=== PATIENT | male | born 1950 | race Caucasian/White ===

== ENCOUNTER 2021-03-20 14:10 | Emergency (ER) | payer MEDICARE ==
[~2021-03-20] VITALS: Ht 165.1 cm; Wt 70.0 kg
[~2021-03-20 14:10] MED LIST: AMLO5TAB16 PO; ASPI-612 PO; DIVA-74 PO; MECL-226 PO; MEMA10TA PO; PARO20TA6 PO; RANI150C4 PO; TAMS0.4C32 PO; TRAZ-251 PO
[2021-03-20 14:54] VITALS: BP 146/69
== END 2021-03-20 17:04 | disposition home or self-care (01) ==
LOC: ER 14:14
DX: K40.90 Unilateral inguinal hernia, without obstruction or gangrene, not specified as recurrent (principal); K59.00 Constipation, unspecified; N50.819 Testicular pain, unspecified; F31.9 Bipolar disorder, unspecified; Z86.73 Personal history of transient ischemic attack (TIA), and cerebral infarction without residual deficits; Z98.890 Other specified postprocedural states; Z72.89 Other problems related to lifestyle; Z79.899 Other long term (current) drug therapy
CPT/HCPCS: 99281

== ENCOUNTER 2021-04-22 10:50 | Day surgery (SDC) | payer MEDICARE ==
[2021-04-20 15:16] LABS: BASOPHILS # (AUTO) 0.1 X10'3 (0-0.2); BASOPHILS % (AUTO) 1.8 % (0-1); EOSINOPHILS # (AUTO) 0.3 X10'3 (0-0.9); LYMPHOCYTES # (AUTO) 2.5 X10'3 (1.1-4.8); LYMPHOCYTES % (AUTO) 39.1 % (21-51); MEAN CORPUSCULAR HEMOGLOBIN 31.2 PG (27.0-31.0); MEAN CORPUSCULAR HGB CONC 32.8 g/dL (33.0-36.5); MEAN CORPUSCULAR VOLUME 95.1 FL (78-98); MEAN PLATELET VOLUME 9.5 FL (7.4-10.4); MONOCYTES # (AUTO) 0.8 X10'3 (0-0.9); MONOCYTES % (AUTO) 12.2 % (2-12); NEUTROPHILS # (AUTO) 2.7 X10'3 (1.8-7.7); NEUTROPHILS % (AUTO) 41.9 % (42-75); PRE OP HEMATOCRIT 43.5 % (42.0-52.0); PRE OP HEMOGLOBIN 14.3 g/dL (14.0-17.9); PRE OP PLATELET COUNT 176 X10'3 (140-440); RED BLOOD COUNT 4.57 X10'6 (4.70-6.10); RED CELL DISTRIBUTION WIDTH 15.5 % (11.5-14.5)
[2021-04-20 15:19] LABS: CLARITY,URINE CLEAR (Clear); COLOR,URINE YELLOW (Yellow); GLUCOSE, URINE NEGATIVE (Neg); KETONES,URINE NEGATIVE (Neg); LEUKOCYTE ESTERASE ,URINE NEGATIVE (Neg); NITRITES, URINE NEGATIVE (Neg); OCCULT BLOOD,URINE SMALL (Neg); PH,URINE 5.5 (4.8-8.0); PROTEIN,URINE NEGATIVE (Neg)
[2021-04-20 15:21] LABS: UA COLLECTION TYPE NON-SPECIFIED
[2021-04-20 15:26] LABS: PRE OP PROTIME 10.5 SECONDS (9.0-12.0)
[2021-04-20 15:28] LABS: SQUAMOUS EPITHELIAL CELL,UR FEW /LPF (FEW)
[2021-04-20 15:29] LABS: BACTERIA,URINE FEW /HPF (Neg); RBC,URINE 0-2 /HPF (0-2); WBC,URINE 0-4 /HPF (0-4)
[2021-04-20 15:29] LABS: ALBUMIN 3.4 G/DL (3.4-5.0); ALBUMIN/GLOBULIN RATIO 0.8 (1.1-1.5); ALKALINE PHOSPHATASE 88 IU/L (46-116); BLOOD UREA NITROGEN 19 MG/DL (7-18); BUN/CREATININE RATIO 17.8 (5.4-32.0); CHLORIDE 105 MMOL/L (99-107); CREATININE 1.07 MG/DL (0.60-1.10); PRE OP ALT 8 U/L (30-65); PRE OP ANION GAP 10 (8-16); PRE OP AST 17 U/L (10-37); PRE OP BILIRUB, TOTAL 0.2 MG/DL (0.0-1.0); PRE OP GLUCOSE 80 MG/DL (70-104); PRE OP POTASSIUM 4.1 MMOL/L (3.4-5.1); PRE OP SODIUM 143 MMOL/L (135-145); TOTAL CARBON DIOXIDE 28.1 MMOL/L (24-32); TOTAL PROTEIN 7.8 G/DL (6.4-8.2); eGFR 68 ML/MIN
[2021-04-22] VITALS (15 sets, daily range): BP systolic 138–171; BP diastolic 65–111
[~2021-04-22] VITALS: Ht 165.1 cm; Wt 71.7 kg
[~2021-04-22 10:50] MED LIST changes: +ATOR20TA66 PO; +BUSP7.5T5 PO; +DOCU-148 PO; +DONE-46 PO; +HYDR-3964 PO; -MECL-226 PO; -MEMA10TA PO; +MEMA10TA56 PO; +MIRT-88 PO; +PANT40TA54 PO; -RANI150C4 PO; +SENN-263 PO; -TRAZ-251 PO; +TRAZ-256 PO; +VITAMIN D3 PO; +[UNRECOGNIZED DRUG - OTHER] PO; +cefazolin/dext.iso 2gm/100ml IV ONE; +famotidine 20mg tablet PO ONE; +ringers solution, lacted 1,000 ML IV SCH
[2021-04-22] MEDS ORDERED: BUPIVAcaine/PF 2.5 mg/ml (0.25%) 30ml vial ONE (11:58)
[2021-04-22] MEDS ORDERED: fentaNYL/PF 50MCG/1 ML 2ML syringe ONE ×2 (12:35→13:12)
[2021-04-22] MEDS ORDERED: propofol 10mg/ml 20ml vial IV ONE (12:37)
[2021-04-22] MEDS ORDERED: glycopyrrolate 0.2mg/ml inj ONE (12:37)
[2021-04-22] MEDS ORDERED: neostigmine methylsulfate 1 MG/ML 10ml vial ONE (12:37)
[2021-04-22] MEDS ORDERED: LIDOcaine 1%/PF 5ML 10 MG/ML VIAL ONE (12:37)
[2021-04-22] MEDS ORDERED: rocuronium 10mg/ml inj IV ONE (12:37)
[2021-04-22] MEDS ORDERED: acetaminophen 1000 MG/100ml vial IV ONE (12:37)
[2021-04-22] MEDS ORDERED: sevoflurane 250ml liquid IH ONE (12:37)
[2021-04-22] MEDS ORDERED: labetalol 20mg/4ml (5mg/ml) syringe IV ONE (12:37)
[2021-04-22] MEDS ORDERED: ondansetron/PF 4mg/2ml inj ONE (12:37)
[2021-04-22] MEDS ORDERED: hydrALAZINE 20mg/ml inj. IV ONE (12:37)
[2021-04-22] MEDS ORDERED: HYDROmorphone/PF 0.2 MG/ML SYRINGE IV PRN ×2 (13:30)
[2021-04-22] MEDS ORDERED: ringers solution, lacted 1,000 ML IV SCH (13:30)
[2021-04-22] MEDS ORDERED: ondansetron/PF 4mg/2ml inj IV PRN (13:30)
[2021-04-22] MEDS ORDERED: BUPIVAcaine/PF 2.5 mg/ml (0.25%) 30ml vial IJ ONE (13:31)
--- NOTE | 2021-04-22 14:29 | NUR ---
Received from OR via [facility], accompanied by Anesthesiologist DR SUAZO and report given by Anesthesiologist. PT CONFUSED AND COMBATIVE FOR SHORT TIME THEN BECAME ORIENTED. ABDOMEN W/3 LAP SITES W/DERMABOND CDI. Addendum: 04/22/21 at 1539 by Kelli Crow RN Amended: Links added.
[2021-04-22] MEDS ORDERED: meperidine/PF 25mg/ml syringe ONE (14:36)
[2021-04-22] MEDS: morphine 2 MG/ML inj. syringe IV PRN ×2 (15:10→16:42)
[2021-04-22] MEDS ORDERED: LIDOcaine 2% 10ml TOPICAL JELLY (Urojet) MM ONE (16:55)
[2021-04-22] MEDS ORDERED: HYDROcodone/acetaminophen 10/325mg tab PO ONE (17:20)
--- NOTE | 2021-04-22 17:49 | NUR ---
PT ONLY ABLE TO VOID SCANT AMT OF PINK URINE, SCANNED BLADDER FOR 149 ML, CALLED DR DICKSON AND UPDATED, ORDERS RECEIVED. PT WANTED TO WAIT AND ATTEMPT TO VOID, AFTER 45 MINUTES, PT UNABLE TO VOID, 16 SLOVENIAN KATHLEEN CATHETER PLACED W/STERILE TECHNIQUE W/480 ML RETURN LIGHT PINK/;YELLOW URINE. D/C INSTRUCTIONS GIVEN AND GONE OVER W/PT AND PTS SON WHO VERBALIZED UNDERSTANDING. PT D/CD TO HOME VIA W/C TO PRIVATE VEHICLE W/O INCIDENT. Addendum: 04/22/21 at 1835 by Kelli Crow RN Amended: Links added.
== END 2021-04-22 17:49 | disposition home or self-care (01) ==
LOC: PAS 10:50
PROVIDERS: ATTEND Surgery
DX: K40.90 Unilateral inguinal hernia, without obstruction or gangrene, not specified as recurrent (principal); R10.32 Left lower quadrant pain; F41.8 Other specified anxiety disorders; E11.9 Type 2 diabetes mellitus without complications; F41.9 Anxiety disorder, unspecified; F32.9 Major depressive disorder, single episode, unspecified; Z86.73 Personal history of transient ischemic attack (TIA), and cerebral infarction without residual deficits; Z91.81 History of falling; J44.9 Chronic obstructive pulmonary disease, unspecified; Z72.0 Tobacco use; Z87.442 Personal history of urinary calculi; Z98.890 Other specified postprocedural states; G89.29 Other chronic pain; Z79.899 Other long term (current) drug therapy
CPT/HCPCS: 36415; 49650; 71046; 80053; 81001; 85025; 85610; 85730; 93005; C1758; C1781; J0131; J0360; J2175; J2270; J2405; J2704; J2710; J3010; J3490; J7120; S2900; A4215; A4618

== ENCOUNTER 2024-02-13 20:13 | Emergency (ER) | payer MEDICARE ==
[~2024-02-13] VITALS: Ht 165.1 cm; Wt 72.3 kg
[~2024-02-13 20:13] MED LIST changes: -cefazolin/dext.iso 2gm/100ml IV ONE; -famotidine 20mg tablet PO ONE; -ringers solution, lacted 1,000 ML IV SCH
[2024-02-13 20:19] VITALS: TEMP 97.9
[2024-02-13] MEDS: glucagon, human recombinant 1mg kit IV ONE (21:28)
[2024-02-13 22:20] VITALS: BP 157/78; PULSE 60; RESP 15
[2024-02-13] MEDS ORDERED: fentaNYL/PF 50MCG/1 ML 2ML syringe ONE (22:21)
[2024-02-13] MEDS ORDERED: MIDAZolam 1 MG/ML 5ML VIAL ONE (22:21)
[2024-02-13] MEDS ORDERED: LIDOcaine 2% Viscous 15ml cup ONE (22:22)
[2024-02-13 22:38] VITALS: BP 144/73; PULSE 60; RESP 13; O2SAT 99
[2024-02-13 22:44] VITALS: BP 137/68; PULSE 60; RESP 12; O2SAT 97
[2024-02-13 22:54] VITALS: BP 150/74; PULSE 60; RESP 12; O2SAT 98
[2024-02-13 23:04] VITALS: BP 149/75; PULSE 60; RESP 11; O2SAT 97
[2024-02-14 00:39] VITALS: BP 138/79; PULSE 60; RESP 12; O2SAT 96
== END 2024-02-14 00:41 | disposition home or self-care (01) ==
LOC: ER 20:14
DX: T18.128A Food in esophagus causing other injury, initial encounter (principal); E10.9 Type 1 diabetes mellitus without complications; Z79.899 Other long term (current) drug therapy; Z79.1 Long term (current) use of non-steroidal anti-inflammatories (NSAID); W44.F3XA Food entering into or through a natural orifice, initial encounter; Y93.89 Activity, other specified; Y92.89 Other specified places as the place of occurrence of the external cause; Y99.8 Other external cause status
CPT/HCPCS: 43247; 93005; 96374; 99152; 99285; J1610; J2250; J3010; Z7512; A4620

== ENCOUNTER 2025-06-30 09:57 | Emergency (ER) | payer MEDICARE ==
[~2025-06-30] VITALS: Ht 177.8 cm; Wt 73.0 kg
[~2025-06-30 09:57] MED LIST changes: -AMLO5TAB16 PO; -DOCU-148 PO; +LOSA50TA64 PO; +MEMA10TA22 PO; -MEMA10TA56 PO; +NOR5T PO; -PARO20TA6 PO; -SENN-263 PO; -TAMS0.4C32 PO; -VITAMIN D3 PO; -[UNRECOGNIZED DRUG - OTHER] PO
--- NOTE | 2025-06-30 10:06 | ELECTROCARDIOGRAPH REPORT ---
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 Bruce Anderson Measurements Intervals [place] Rate: 62 P: -4 [place]: 166 QRS: 61 QRSD: 102 T: 65 QT: 427 QTc: 434 Interpretive Statements Atrial-paced complexes Nonspecific T abnormalities, lateral leads Baseline wander in lead(s) I,III,aVR,aVL,V3 Electronically Signed On 06-30-2025 19:43:[address] Bruce Anderson Please click the below link to view image of tracing.
[2025-06-30] MEDS ORDERED: BUSP10TA11 PO (10:24)
--- NOTE | 2025-06-30 10:24 | Physician Documentation ---
History of Present Illness ~ Chief Complaint: Stroke Alert Stated Complaint: STROKE SYMPTOMS Time Seen by MD: 10:17 OK to notify your PCP?: Yes Primary Medical Doctor: [facility] Source: patient (6), family Exam Limitations: no limitations HPI Patient comes in for extension of stroke symptoms. Was admitted from 06/19 to 06/21 for acute thalamic right infarct, and had had at that time a numbness to the left face, the left occiput, in the left upper and lower extremities. Patient was admitted, seen and evaluated, and ultimately sent home with losartan and an increase in his amlodipine dose. At the time he was discharged his symptoms had not changed, and the numbness in his arm was predominantly in the upper arm. He comes in today because sometime in the night he began to have numbness down all the way to his left fingers, and awoke with these new symptoms. He has no other complaints nor new neurologic changes. He came in for further evaluation. Medication Reconciliation Allergies: Coded Allergies: No Known Allergies (Unverified , 02/13/24) Scheduled Amlodipine Besylate (Amlodipine Besylate), 10 MG PO DAILY Aspirin (Aspir 81), 81 MG PO DAILY, (Reported) Atorvastatin Calcium (Atorvastatin Calcium), 80 MG PO HS Buspirone Hcl* (Buspar*), 1 TAB PO TID, (Reported) Divalproex Sodium (Divalproex Sodium), 2 TAB PO HS, (Reported) Donepezil Hcl (Donepezil Hcl), 1 TAB PO HS, (Reported) Losartan Potassium (Losartan Potassium), 50 MG PO DAILY Memantine HCl (Memantine HCl), 1 TAB PO BID, (Reported) Mirtazapine (Mirtazapine), 0.5 TAB PO HS, (Reported) Pantoprazole Sodium (Pantoprazole Sodium), 1 TAB PO DAILY, (Reported) Trazodone HCl (Trazodone HCl), 1 TAB PO HS, (Reported) Scheduled PRN Hydrocodone Bit/Acetaminophen (Hydrocodon-Acetaminophen 5-325), 1 TAB PO Q6H PRN for pain, (Reported) Discontinued Medications Buspirone Hcl (Buspirone Hcl), 1 TAB PO BID, (Reported) Discontinued Reason: Other 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 History 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*, CVA/TIA/Stroke, Hypertension, COPD, Bipolar, Depression Other 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 History: Hypokalemia Past Surgical History: other Other Past Surgical History: Femoral bypass, AAA Patient History: (DM Type1) Diabetes mellitus type 1 FATHER (Unknown.) Smoking Status: Current every day smoker Alcohol Use: Occasionally Drug Use: none Lives with: Family Lives In: Home Review of Systems All Other Systems at this time: Reviewed and Negative Physical Exam Vital Signs: RN Vital Signs have been reviewed: Yes, Temperature: 97.0, Source: Oral, Heart Rate: 78, Respiratory Rate: 18, Pulse Oximetry: 98, Weight: 73.000 General Appearance General: Pt is awake, alert, oriented x4 in no acute distress and well appearing. Head: Normocephalic and atraumatic. Eyes: Conjunctiva normal. ENT: Mucous membranes moist. Neck: Supple. Chest: Clear to auscultation bilaterally, without rales, rhonchi, or wheezes. There is no accessory muscle use or retractions. Cardiac: Regular rate and rhythm without murmurs, gallops or rubs. Palpation of the chest wall is normal. Abd: Soft, nondistended, nontender, with normoactive bowel sounds. No guarding or rebound. Extremities: Within normal limits without cyanosis, clubbing, or edema. Skin: [place], warm and dry with no significant rash appreciated. Neuro: Cranial nerves II-XII intact except for subjective numbness over the left face. Patient has numbness to the left arm to the fingers, and to most of his left leg. Motor strength is intact to radiology scheduler strength testing. Gait not checked. Progress Progress Note 1938: Paged Hospitalist Results/Orders Reviewed/noted all lab results: Yes Results/Orders Orders - BRUCE ANDERSON MD [place] Prov.Neuro Consult (06/30/25 19:35) Page Hospitalist (06/30/25 19:38) Fill Out Med Reconciliation (06/30/25 19:38) Medications Received in ER Medications (Trade) Dose Ordered Sig/Pratibha Route PRN Reason Start Time Stop Time Status Last Admin Dose Admin (Versed 5 MG/ML 2ML inj) 2 mg ONCE ONCE IV 06/30/25 14:05 06/30/25 14:06 DC 06/30/25 14:21 2 MG (morphine inj.) 1 mg ONCE ONCE IV 06/30/25 14:05 06/30/25 14:06 DC 06/30/25 14:21 1 MG Vital Signs 06/30/25 06/30/25 06/30/25 06/30/25 10:01 10:43 10:50 11:00 Temp 97.0 Pulse 78 60 Resp 18 11 17 B/P (MAP) 127/61 (83) Pulse Ox 98 97 98 O2 Delivery Room Air* O2 Flow Rate 0 0 FiO2 21 06/30/25 06/30/25 06/30/25 06/30/25 11:24 11:30 12:00 12:30 Temp 97.9 Pulse 64 60 61 61 Resp 12 15 21 16 B/P (MAP) 121/64 (83) 129/65 (86) 121/71 (88) 129/57 (81) Pulse Ox 97 97 84 96 O2 Flow Rate 0 0 0 0 06/30/25 06/30/25 06/30/25 06/30/25 13:00 13:30 15:10 15:30 Temp 98.1 Pulse 62 65 62 Resp 23 12 13 12 B/P (MAP) 103/50 (67) 152/77 (102) 170/84 (112) Pulse Ox 96 96 96 O2 Flow Rate 0 0 0 06/30/25 06/30/25 06/30/25 17:30 18:46 19:30 Temp 98.1 98.1 Pulse 67 63 62 Resp 12 12 14 B/P (MAP) 137/69 (91) 126/75 (92) 132/88 (103) Pulse Ox 96 96 96 O2 Flow Rate 0 0 0 Laboratory Tests Test 06/30/25 10:10 06/30/25 10:43 Glucometer 84 White Blood Count 7.3 Red Blood Count 4.06 L Hemoglobin 12.4 L Hematocrit 37.2 L Mean Corpuscular Volume 91.7 Mean Corpuscular Hemoglobin 30.5 Mean Corpuscular Hemoglobin Concent 33.3 Red Cell Distribution Width 14.4 Platelet Count 248 Mean Platelet Volume 8.9 Neutrophils (%) (Auto) 58.1 Lymphocytes (%) (Auto) 28.4 Monocytes (%) (Auto) 9.6 Eosinophils (%) (Auto) 2.6 Basophils (%) (Auto) 1.3 H Neutrophils # (Auto) 4.2 Lymphocytes # (Auto) 2.1 Monocytes # (Auto) 0.7 Eosinophils # (Auto) 0.2 Basophils # (Auto) 0.1 CBC Comment Prothrombin Time 10.5 INR International Normalized Ratio 1.0 Activated Partial Thromboplast Time 26 Coagulation Comments Sodium Level 138 Potassium Level 5.0 Chloride Level 102 Carbon Dioxide Level 32.6 H Anion Gap 3 L Blood Urea Nitrogen 20 H Creatinine 1.38 H Estimated GFR/1.73 m2 50 BUN/Creatinine Ratio 14.5 Glucose Level 83 Calcium Level 8.9 Albumin 3.0 L Chemistry Comments Re-Evaluation Re-Evaluation #1: Re-Evaluation Time: 10:[address] Teleneurology paged Re-Evaluation #2: Re-Evaluation Time: 11:32 Progress Discussed case and CT findings with the neurologist. She is asking for a DWI sequenced MRI and if normal patient can be discharged. Re-Evaluation #3: Re-Evaluation Time: 13:56 Progress Pt stable, going to MRI. Re-Evaluation #4: Re-Evaluation Time: 17:22 Progress No change in symptoms, awaiting MRI result to communicate to Neurologist Re-Evaluation #5: Re-Evaluation Time: 18:19 Progress Pt's care signed out to Dr. Anderson, who will review MRI report and discuss with Neurology, arrange for appropriate disposition. 7:41 p.m.. Received sign-out in the patient to evaluate MRI. Says there is an evolving stroke. Reviewing the medical record patient is having a stroke that requires admission. 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 Coronal and sagittal reformatted images are submitted. Radiation Dose : 1. Head: CT Dose: CTDI volume is 54.87 mGy. Dose-length product is 1004.6 mGy*cm The dose indicators for CT are the volume Computed Tomography (CT) Dose Index (CTDIvol) and the Dose Length Product (DLP), and are measured in units of mGy and mGy-cm, respectively. These indicators are not patient dose, but values generated from the CT scanner acquisition factors. The report includes radiation exposure data for exposures received during this examination. All CT scans at this medical facility are performed using dose modulation techniques as appropriate to a performed exam including the following: Automated exposure control was utilized; adjustment of the MA and/or KV according to patient size; and use of iterative reconstruction technique. COMPARISON: MR MRI HEAD on DOS: 06/20/25, CT CT STROKE ALERT on DOS: 06/19/25 FINDINGS: There is no evidence of acute intracranial hemorrhage, extra-axial collection, mass effect, midline shift, herniation or hydrocephalus. Generalized volume loss. There are periventricular and subcortical hypodensities, nonspecific, but likely reflecting sequelae of chronic microvascular ischemic changes. The ventricles, sulci and cisterns are age appropriate. The pagan-white differentiation is intact. The visualized paranasal sinuses and mastoid air cells are clear. No depressed calvarial fracture. The surrounding soft tissues are unremarkable. IMPRESSION: 1. No evidence of acute intracranial abnormality. Electronically Signed by:NORA FUENTES MD Date & Time: 06/30/251044 Dictated by: NORA FUENTES MD Dictation date and time: 06/30/251044 Primary Care Provider: NO PRIMARY CARE PROVIDER cc: GALILEO BEARD MD ~ MRI : Interpreted By: radiologist MRI of: head With Contrast?: No Impression [address], [facility] [address] MRI Patient: LISA FLANAGAN Medical Record: [id number] JOSEPH MOUNT STERLING : 1950, Age: 74 Sex: Male Location: ER Patient Status: REG ER Service Date/Time: 06/30/251429 Ordering Physician: GALILEO BEARD MD Exam: MRI HEAD JOSEPH MOUNT STERLING EXAMINATION: MR MRI HEAD INDICATION: AMS COMPARISON: CT CT HEAD on DOS: 06/30/25, MR MRA HEAD on DOS: 06/20/25, MR MRI HEAD on DOS: 06/20/25 TECHNIQUE: Multiplanar, multisequence magnetic resonance imaging of the brain was performed without the use of intravenous contrast. FINDINGS: Evaluation is degraded by motion artifact. There is trace residual increased DWI signal intensity within the right thalamus, decreased compared to the prior MRI dated 06/20/2025. No new abnormal DWI signal is seen. There is no acute intracranial hemorrhage or mass effect. There are global involutional changes with compensatory prominence of the ventricles and sulci. There is periventricular/deep white matter T2/FLAIR hyperintensity is nonspecific, but most commonly associated with chronic microvascular disease. There are chronic deep cerebral lacunar infarcts. Flow voids in the major intracranial vessels are maintained. No abnormality of the orbits. Paranasal sinuses and mastoid air cells are clear. No abnormality of the visualized osseous structures and extracranial soft tissues. IMPRESSION: 1. Continued evolution of subacute right thalamic infarct. 2. No acute territorial infarct, intracranial hemorrhage, or mass effect. 3. Age-related involutional changes. Chronic microvascular changes. Chronic lacunar infarcts. Electronically Signed by:GIFTY DUONG MD Date & Time: 06/30/25 190 Dictated by: GIFTY DUONG MD Dictation date and time: 06/30/251429 Primary Care Provider: NO PRIMARY CARE PROVIDER cc: GALILEO BEARD MD ~ Consults/PCP Consults/PCP : Time Call Requested: 10:43 Additional Comment Case d/w Neurology, who will evaluate patient for recommendations Medical Decision Making Additional info obtained from: old records Differential Dx:Considerations: Include: Bledsoe's Palsey, CVA, Delirium tremens, DKA, Drug overdose, Electrolyte imbalance, Encephalopathy, Hypoxemia, Hypoglycemia, Mass lesion, Respiratory failure, Subarachnoid Hemorrhage, TIA, Other Departure Time of Disposition: 18:38 Disposition: 09 ADMITTED INPATIENT Admitted to Inpatient Unit: yes, to hospitalist Impression: Primary Impression: CVA (cerebral vascular accident) Qualified Codes: I63.531 - Cerebral infarction due to unspecified occlusion or stenosis of right posterior cerebral artery Additional Impression: Renal insufficiency Condition: Guarded Referrals: NO PRIMARY CARE PROVIDER (PCP) Additional Comment Additional Comment 8:00 p.m. discussed the case with the hospitalist for admission. MRI showed no new signal regarding the MRI implying a complete evolution of the thalamus stroke. However also states 1. Continued evolution of subacute right thalamic infarct. Family was concerned because he has not been swallowing well and concerned that the symptoms were more acute. He has not eaten today but was told that he passed the swallow study by nurses. I discussed the case with the resident service who felt this was a chronic presentation the stroke has resolved did not meet criteria for admission. Tele neurology recommended if chronic stroke patient can be discharged Signature Scribe Signature: ,m Attestation: The note accurately reflects work and decisions made by me.Bruce Anderson MD 06/30/25 19:42 GALILEO BEARD MD Jun 30, 2025 10:24 BRUCE ANDERSON MD Jun 30, 2025 19:42
--- NOTE | 2025-06-30 10:47 | RADIOLOGY REPORT ---
EXAM: CT CT HEAD INDICATION: STROKE ALERT TECHNIQUE: CT of the head without intravenous contrast. Coronal and sagittal reformatted images are s ubmitted. Radiation Dose : 1. Head: CT Dose: CTDI volume is 54.87 mGy. Dose-length product is 1004.6 mGy*cm The dose indicators for CT are the volume Computed Tomography (CT) Dose Index (CTDIvol) and the Dose Length Product (DLP), and are measured in units of mGy and mGy-cm, respectively. These indicators are not patient dose, but values generated from the CT scanner acquisition factors. The report includes radiation exposure data for exposures received during this examination. All CT scans at this medical facility are performed using dose modulation techniques as appropriate to a performed exam including the following: Automated exposure control was utilized; adjustment of the MA and/or KV according to patient size; and use of iterative reconstruction technique. COMPARISON: MR MRI HEAD on DOS: 06/20/25, CT CT STROKE ALERT on DOS: 06/19/25 FINDINGS: There is no evidence of acute intracranial hemorrhage, extra-axial collection, mass effect, midline s hift, herniation or hydrocephalus. Generalized volume loss. There are periventricular and subcortical hypodensities, nonspecific, but likely reflecting sequelae of chronic microvascular ischemic changes. The ventricles, sulci and cisterns are age appropriate. The pagan-white differentiation is intact. The visualized paranasal sinuses and mastoid air cells are clear. No depressed calvarial fracture. The surrounding soft tissues are unremarkable. IMPRESSION: 1. No evidence of acute intracranial abnormality.
[2025-06-30 11:11] LABS: MEAN PLATELET VOLUME 8.9 FL (7.4-10.4); RED CELL DISTRIBUTION WIDTH 14.4 % (11.5-14.5)
[2025-06-30 11:20] LABS: CREATININE 1.38 MG/DL (0.60-1.10); TOTAL CARBON DIOXIDE 32.6 MMOL/L (24-32); eCRCL 47 ML/MIN; eGFR 50 ML/MIN
[2025-06-30 11:35] LABS: APTT 26 SECONDS (22-32); INR 1.0 INR
--- NOTE | 2025-06-30 13:53 | [facility] CONSULT REPORT ---
[facility] Procedure Note [facility] Procedure Note Consult [facility] Note # Demographics Consult Type: Acute Stroke Level 2 (4.5-24 hrs) Patient Location: Emergency Room First Name: LISA Last Name: MASHA Date of : 1950 Age: 74 Gender: Male Facility: [facility] Time of Initial Page (): 06/30/2025 10:32 Time of Return Call (): 06/30/2025 10:32 # HPI Chief Complaint: - numbness History: 74 y/o M presented with worsened numbness in the LUE. He has a mild headache. Denies double vision, loss of vision or word finding difficulty and weakness. Admitted for a R thalamic infarct, discharged on Losartan and Norvasc. # Scores Time of exam and NIHSS (): 06/30/2025 10:51 Level of Consciousness 1a: [0] = Alert; keenly responsive LOC Questions 1b: [0] = Answers both questions correctly LOC Commands 1c: [0] = Performs both tasks correctly Best Gaze 2: [0] = Normal Visual 3: [0] = No visual loss Facial Palsy 4: [0] = Normal symmetrical movements Motor Arm Left 5a: [0] = No drift Motor Arm Right 5b: [0] = No drift Motor Leg Left 6a: [1] = Drift Motor Leg Right 6b: [0] = No drift Limb Ataxia 7: [0] = Absent Sensory 8: [1] = Oyea-nh-kacrkgfu sensory loss Best Language 9: [0] = No aphasia Dysarthria 10: [1] = Wdyd-gz-dqtassdq dysarthria Extinction and Inattention 11: [0] = No abnormality NIHSS Total: 3 # PMH-FH- 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 History: - stroke Medications: - antihypertensive - aspirin memantine # Data Head CT: - no bleed - per radiologist read # Assessment Impression: Numbness likely due to evolution of infarct from May rather than new stroke # Plan Thrombolytic/Intervention: NOT IV Thrombolysis or IA Intervention candidate Thrombolytic Exclusion (< 3 hour window): - stroke within 3 months Intraarterial Exclusion: - clinical exam not consistent with presence of large vessel occlusion (LVO), can reconsider if LVO found on vascular imaging Labs: - CBC - comprehensive metabolic panel - ua - TSH Imaging: (urgency: STAT): - MRI Brain without contrast Medication: - aspirin 81 mg daily - start statin with goal of LDL < 70 Other: - If patient has any neurological deterioration please call me back immediately - would not pursue stroke work-up if MRI is negative - telemetry monitoring - I have discussed my recommendations with the referring provider # Logistics Attestation of consult completion: The patient is located at: [facility]. Facility staff participated in the visit. I performed this telemedicine visit from my offsite office utilizing interactive 2 way audio and visual telecommunication technology. Total time spent in telemedicine encounter: I spent 20 minutes reviewing clinical data and/or imaging, obtaining history, examining the patient, communicating with the onsite care team, and in preparation of this report. # Demographics First Name: LISA Last Name: MASHA Facility: [facility] Electronically signed at 06/30/2025 11:34 ([place] Time) by Cara Moran MD Neuro Consult Order placed for: Yes CARA MORAN MD Jun 30, 2025 13:53
[2025-06-30] MEDS: MIDAZolam 5mg/ml 2ml vial IV ONE (14:21)
--- NOTE | 2025-06-30 19:04 | RADIOLOGY REPORT ---
HEALTH SYSTEM EXAMINATION: MR MRI HEAD INDICATION: AMS COMPARISON: CT CT HEAD on DOS: 06/30/25, MR MRA HEAD on DOS: 06/20/25, MR MRI HEAD on DOS: 06/20/25 TECHNIQUE: Multiplanar, multisequence magnetic resonance imaging of the brain was performed without the use of i ntravenous contrast. FINDINGS: Evaluation is degraded by motion artifact. There is trace residual increased DWI signal intensity within the right thalamus, decreased compared to the prior MRI dated 06/20/2025. No new abnormal DWI signal is seen. There is no acute intracranial hemorrhage or mass effect. There are global involutional changes with compensatory prominence of the ventricles and sulci. There is periventricular/deep white matter T2/FLAIR hyperintensity is nonspecific, but most commonly associated with chronic microvascular disease. There are chronic deep cerebral lacunar infarcts. Flow voids in the major intracranial vessels are maintained. No abnormality of the orbits. Paranasal sinuses and mastoid air cells are clear. No abnormality of the visualized osseous structures and extracranial soft tissues. IMPRESSION: 1. Continued evolution of subacute right thalamic infarct. 2. No acute territorial infarct, intracranial hemorrhage, or mass effect. 3. Age-related involutional changes. Chronic microvascular changes. Chronic lacunar infarcts.
[2025-06-30 20:26] VITALS: BP 142/73; PULSE 60; RESP 12; TEMP 98.1; O2SAT 94
== END 2025-06-30 20:31 | disposition home or self-care (01) ==
LOC: ER 09:58
DX: I63.89 Other cerebral infarction (principal); N28.9 Disorder of kidney and ureter, unspecified; F17.200 Nicotine dependence, unspecified, uncomplicated; I10 Essential (primary) hypertension; J44.9 Chronic obstructive pulmonary disease, unspecified; F31.9 Bipolar disorder, unspecified; Z86.73 Personal history of transient ischemic attack (TIA), and cerebral infarction without residual deficits; Z79.899 Other long term (current) drug therapy; Z72.89 Other problems related to lifestyle
CPT/HCPCS: 36415; 70450; 70551; 80048; 82948; 85025; 85610; 85730; 93005; 96374; 96375; 99285; J2250; J2270

== ENCOUNTER 2025-10-09 09:57 | Emergency (ER) | payer MEDICARE ==
[~2025-10-09] VITALS: Ht 165.1 cm; Wt 68.5 kg
[~2025-10-09 09:57] MED LIST changes: +BUSP10TA11 PO; -BUSP7.5T5 PO
--- NOTE | 2025-10-09 10:02 | ELECTROCARDIOGRAPH REPORT ---
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 HEMA Austin Measurements Intervals [place] Rate: 64 P: 0 AR: 148 QRS: 88 QRSD: 87 T: 32 QT: 409 QTc: 422 Interpretive Statements Atrial-paced complexes Anterior infarct, old Baseline wander in lead(s) V3,V4 Electronically Signed On 10-11-2025 18:01:[address] HEMA Austin Please click the below link to view image of tracing.
[2025-10-09 10:07] VITALS: TEMP 98.1
[2025-10-09 11:05] LABS: MEAN PLATELET VOLUME 9.0 FL (7.4-10.4); RED CELL DISTRIBUTION WIDTH 16.5 % (11.5-14.5)
[2025-10-09 11:15] LABS: CREATININE 1.26 MG/DL (0.60-1.10); PRO BRAIN NATRIURETIC PEPTIDE 991 PG/ML (0-450); eCRCL 43 ML/MIN; eGFR 56 ML/MIN
--- NOTE | 2025-10-09 11:16 | Physician Documentation ---
History of Present Illness ~ Chief Complaint: Bradycardia Stated Complaint: PACEMAKER COMPLICATIONS Time Seen by MD: 10:19 OK to notify your PCP?: Yes Primary Medical Doctor: LENO HPI 74 years old male with history of vascular dementia, CVA pacemaker in place brought to the ED with concern of bradycardia. Patient's son is in the bedside and reported patient was in the primary care clinic to establish the care, and they noticed the heart rate was on 38 and ask patient to came to the hospital. As his son report patient was pale and weak since yesterday and her anxiety exacerbated. Son did not reported any other symptoms. Patient is awake alert, denied any chest pain shortness of breaths, abdominal pain and constantly ask for anxiety medication. Medication Reconciliation Allergies: Coded Allergies: No Known Allergies (Unverified , 02/13/24) Scheduled Amlodipine Besylate (Amlodipine Besylate), 10 MG PO DAILY Aspirin (Aspir 81), 81 MG PO DAILY, (Reported) Atorvastatin Calcium (Atorvastatin Calcium), 80 MG PO HS Buspirone Hcl* (Buspar*), 1 TAB PO TID, (Reported) Divalproex Sodium (Divalproex Sodium), 2 TAB PO HS, (Reported) Donepezil Hcl (Donepezil Hcl), 1 TAB PO HS, (Reported) Losartan Potassium (Losartan Potassium), 50 MG PO DAILY Memantine HCl (Memantine HCl), 1 TAB PO BID, (Reported) Mirtazapine (Mirtazapine), 0.5 TAB PO HS, (Reported) Pantoprazole Sodium (Pantoprazole Sodium), 1 TAB PO DAILY, (Reported) Trazodone HCl (Trazodone HCl), 1 TAB PO HS, (Reported) Scheduled PRN Hydrocodone Bit/Acetaminophen (Hydrocodon-Acetaminophen 5-325), 1 TAB PO Q6H PRN for pain, (Reported) 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 History 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 History: *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*, CVA/TIA/Stroke, Hypertension, COPD, Bipolar, Depression Past Surgical History: other Other Past Surgical History: Femoral bypass, AAA Patient History: (DM Type1) Diabetes mellitus type 1 FATHER (Unknown.) Alcohol Use: Occasionally Drug Use: none Lives with: Family Lives In: Home Review of Systems ROS The history of present illness included a review of system, which yielded relevant positives and negatives Physical Exam Vital Signs: Temperature: 98.1, Source: Oral, Heart Rate: 67, Respiratory Rate: 16, BP: 157/70, Pulse Oximetry: 96, Weight: 68.550 Oxygen Flow Rate: 0 Physical Exam General: Awake and Alert, anxious old gentleman HEENT: Conjunctiva pink, Sclera clear, Mucus Membranes moist. Neck: Supple without masses and tenderness. Resp: Lungs clear to auscultation bilaterally. Heart: irregular rate and rhythm, normal S1 and S2, pacemaker in place Abdomen: Soft and non tender no organomegaly Extremities: No cyanosis,clubbing or edema. Skin: Warm and Dry. Neurological: Speech is clear, alert, and oriented to person and place, no gross focal neurological deficits Progress Results/Orders Results/Orders Orders - OHLGIA PICHARDO MD Chest,Single View (10/09/25 10:44) Monitor (10/09/25 10:44) Urinalysis, Cult If Indicated (10/09/25 10:44) Completed Orders - GIA GREENFIELD MD Electrocardiogram (10/09/25 09:58) Cbc/Diff (10/09/25 10:44) MG (10/09/25 10:44) PBNP (10/09/25 10:44) Chest,Single View (10/09/25 10:44) BMP (10/09/25 10:44) Hs Troponin I W Calculations (10/09/25 10:44) Procalcitonin (10/09/25 10:44) Lorazepam Tablet (Ativan Tablet) (10/09/25 11:20) Hydrocodone/Apap 5/325mg Tab (White 5/32 (10/09/25 11:20) Morphine 2mg/Ml Inj. (Morphine Inj.) (10/09/25 11:20) Hydrocodone/Apap 5/325mg Tab (White 5/32 (10/09/25 11:20) Lorazepam Tablet (Ativan Tablet) (10/09/25 11:20) Morphine 2mg/Ml Inj. (Morphine Inj.) (10/09/25 11:25) Medications Received in ER Medications (Trade) Dose Ordered Sig/Pratibha Route PRN Reason Start Time Stop Time Status Last Admin Dose Admin (Ativan tablet) 1 mg ONCE ONCE PO 10/09/25 11:20 10/09/25 11:21 DC 10/09/25 11:31 1 MG (White 5/325mg tablet) 1 tab ONCE ONCE PO 10/09/25 11:20 10/09/25 11:21 DC 10/09/25 11:31 1 TAB (morphine inj.) 2 mg ONCE ONCE IV 10/09/25 11:20 10/09/25 11:29 DC 10/09/25 11:50 2 MG Vital Signs 10/09/25 10/09/25 10/09/25 10/09/25 10:07 11:31 11:31 11:50 Temp 98.1 Pulse 67 Resp 16 20 18 12 B/P (MAP) 157/70 Pulse Ox 96 O2 Flow Rate 0 10/09/25 10/09/25 10/09/25 12:00 12:33 13:47 Pulse 63 68 Resp 18 12 B/P (MAP) 130/66 (87) 139/71 (93) Pulse Ox 96 97 Laboratory Tests Test 10/09/25 10:06 White Blood Count 7.3 Red Blood Count 4.31 L Hemoglobin 13.2 L Hematocrit 39.4 L Mean Corpuscular Volume 91.6 Mean Corpuscular Hemoglobin 30.7 Mean Corpuscular Hemoglobin Concent 33.6 Red Cell Distribution Width 16.5 H Platelet Count 241 Mean Platelet Volume 9.0 Neutrophils (%) (Auto) 61.1 Lymphocytes (%) (Auto) 26.8 Monocytes (%) (Auto) 9.9 Eosinophils (%) (Auto) 0.9 Basophils (%) (Auto) 1.3 H Neutrophils # (Auto) 4.4 Lymphocytes # (Auto) 2.0 Monocytes # (Auto) 0.7 Eosinophils # (Auto) 0.1 Basophils # (Auto) 0.1 CBC Comment Sodium Level 140 Potassium Level 4.1 Chloride Level 104 Carbon Dioxide Level 28.3 Anion Gap 8 Blood Urea Nitrogen 13 Creatinine 1.26 H Estimated GFR/1.73 m2 56 BUN/Creatinine Ratio 10.3 Glucose Level 105 H Calcium Level 9.1 Magnesium Level 2.0 Troponin I High Sensitivity 31 Pro-B-Type Natriuretic Peptide 991 H Albumin 3.5 Procalcitonin < 0.05 Chemistry Comments EKG/XRAY/CT/US/VASC/MRI EKG : Additional Comment EKG showed atrial paced, rate 46, irregular, no ST changes, no PVC Chest X-Ray : Additional Comments CHEST RADIOGRAPH Indication: CP Technique: DI CHEST,SINGLE VIEW Comparison: None FINDINGS: Left chest dual lead cardiac pacing device. The cardiac silhouette is unremarkable. The lungs demonstrate no pulmonary airspace consolidation. The pulmonary vasculature is unremarkable. There is no pleural effusion. There is no pneumothorax. Aortic atherosclerotic disease. IMPRESSION: No pulmonary airspace consolidation. Electronically Signed by:RYAN DAVALOS MD Date & Time: 10/09/25 1118 Dictated by: RYAN DAVALOS MD Dictation date and time: 10/09/25 1104 Medical Decision Making Additional information obtaine: old records, family Findings 58 years old male with history of CVA, vascular dementia, pacemaker in place brought to the ED with concern of bradycardia, Differential diagnosis is but not limited to pacemaker complication, heart block, myocardial infarction, infection including UTI pneumonia EKG showed, rate 64, atrial paced, regular no PVC, no ST changes Labs reviewed there is no any leukocytosis, CKD, improving, normal troponin and procalcitonin Interrogation was done, waiting for the results, sign out to Dr. Greenfield Differential Dx:Considerations: Include: anemia, dysrhythmia, renal failure Departure Disposition: 01 HOME / SELF CARE / HOMELESS Impression: Primary Impression: Bradyarrhythmia Discharge Instructions: Bradycardia, Adult Additional Instructions: Follow up with your battery repairer as soon as possible Referrals: NO PRIMARY CARE PROVIDER (PCP) Signature Scribe Signature: no scribe Attestation: The resident attestation: I examined the patient and discussed the plan with attending physician IRINA Felipe, RES Oct 09, 2025 11:16 GIA GREENFIELD MD Oct 09, 2025 14:18
[2025-10-09 11:18] LABS: TOTAL CARBON DIOXIDE 28.3 MMOL/L (24-32)
[2025-10-09] MEDS: HYDROcodone/acetaminophen 5mg/325mg tablet PO ONE ×2 (11:31→11:50)
[2025-10-09 12:33] VITALS: RESP 12
[2025-10-09 13:47] VITALS: BP 139/71; PULSE 68; O2SAT 97
== END 2025-10-09 14:52 | disposition home or self-care (01) ==
LOC: ER 09:57
DX: I49.8 Other specified cardiac arrhythmias (principal); R06.02 Shortness of breath; E10.9 Type 1 diabetes mellitus without complications; F31.9 Bipolar disorder, unspecified; I10 Essential (primary) hypertension; J44.9 Chronic obstructive pulmonary disease, unspecified; Z86.73 Personal history of transient ischemic attack (TIA), and cerebral infarction without residual deficits; Z95.0 Presence of cardiac pacemaker; Z79.4 Long term (current) use of insulin
CPT/HCPCS: 36415; 71045; 80048; 83735; 83880; 84145; 84484; 85025; 93005; 96374; 99285; J2270